=== PATIENT | female | born 1990 | race Two or more races ===

== ENCOUNTER 2023-11-20 09:04 | Emergency (ER) | payer SELFPAY ==
[~2023-11-20] VITALS: Ht 162.6 cm; Wt 82.0 kg
[2023-11-20 11:27] VITALS: BP 114/71; PULSE 83; RESP 18; TEMP 98.4; O2SAT 100
== END 2023-11-20 11:30 | disposition home or self-care (01) ==
LOC: ER 09:04
DX: Z11.1 Encounter for screening for respiratory tuberculosis (principal); F17.210 Nicotine dependence, cigarettes, uncomplicated; Z98.890 Other specified postprocedural states
CPT/HCPCS: 71046

== ENCOUNTER 2024-08-04 04:05 | Emergency (ER) | payer SELFPAY ==
[~2024-08-04] VITALS: Ht 162.6 cm; Wt 89.0 kg
[2024-08-04] MEDS ORDERED: MORPHINE SULFATE 4 MG/ML SYR/VIAL IV ONE (04:30)
[2024-08-04 04:53] LABS: Basophils # (auto) 0.1 10 ^3/uL (0-0.2); Basophils % (auto) 0.8 % (0.0-2.0); Eosinophils # (auto) 0.1 10 ^3/uL (0-0.8); Hematocrit 43.2 % (36.0-46.0); Lymphocytes # (auto) 2.4 10 ^3/uL (0.4-5.4); Mean Corpuscular Hemoglobin 30.3 pg (28.0-32.0); Mean Corpuscular Hgb Conc. 34.7 g/dL (32.0-36.0); Mean Corpuscular Volume 87.1 fL (80.0-100.0); Monocytes # (auto) 0.4 10 ^3/uL (0-1.3); Monocytes % (auto) 6.5 % (0.0-12.0); Neutrophils # (auto) 3.8 10 ^3/uL (1.6-8.6); Neutrophils % (auto) 55.7 % (37.0-80.0); Platelet Count (auto) 298 10^3/uL (140-450); Red Blood Cells 4.95 10^6/uL (4.0-5.20); Red Cell Distribution Width 14.6 % (11.8-14.3); White Blood Cell 6.8 10^3/uL (4.4-10.8)
[2024-08-04] MEDS: SODIUM CHLORIDE 0.9% 1,000 ML IV ONE (04:55)
[2024-08-04 04:57] LABS: Urine Bacteria FEW /hpf (None Seen); Urine Blood Negative /uL (Negative); Urine Clarity Clear (Clear); Urine Color Colorless (Yellow); Urine Protein, UAD Negative (Negative); Urine Specific Gravity 1.005 (1.001-1.035); Urine Urobilinogen Normal (Negative); Urine WBC 7 /hpf (0 - 5); Urine pH 5.5 (5.0-9.0)
[2024-08-04] MEDS: ONDANSETRON HCL 4 MG/2 ML VIAL IV ONE (05:08)
[2024-08-04 05:16] VITALS: BP 107/66; PULSE 61; RESP 12; TEMP 98.5; O2SAT 98
[2024-08-04 05:20] LABS: Alanine Aminotransferase 15 U/L (7-40); Albumin 4.5 g/dL (3.2-4.8); Alkaline Phosphatase 87 U/L (46-116); Anion Gap 4 (5-15); Aspartate Aminotransferase 13 U/L (13-40); Bilirubin, Total 0.3 mg/dL (0.2-1.0); Calcium 9.5 mg/dL (8.7-10.4); Carbon Dioxide 22 mmol/L (20-31); Chloride 110 mmol/L (98-107); Glucose 92 mg/dL (74-106); Lipase 31 U/L (12-53); Potassium 3.7 mmol/L (3.5-5.1); Sodium 136 mmol/L (136-145); Total Protein 8.1 g/dL (5.7-8.2)
[2024-08-04 05:28] LABS: BUN/Creatinine Ratio 7.1 (10.0-20.0); Blood Urea Nitrogen < 5 mg/dL (9-23)
[2024-08-04] MEDS: IOHEXOL 300 MG/ML 100ML BOTTLE IJ ONE (05:46)
[2024-08-04] MEDS ORDERED: metroNIDAZOLE 500MG/100ML 100 ML IV ONE (07:15)
[2024-08-04] MEDS ORDERED: cefTRIAXone 1GM/50ML D5W 50 ML IV ONE (07:15)
== END 2024-08-04 09:29 | disposition left against medical advice (07) ==
LOC: ER 04:05
DX: K52.9 Noninfective gastroenteritis and colitis, unspecified (principal); N39.0 Urinary tract infection, site not specified; F17.210 Nicotine dependence, cigarettes, uncomplicated; Z98.890 Other specified postprocedural states
CPT/HCPCS: 36415; 74177; 80053; 81001; 81025; 83690; 85025; 96361; 96374; 99285; J2405; J7030; Q9967